=== PATIENT | male | born 1940 | race Caucasian/White ===

== ENCOUNTER → 2020-07-30 | Outpatient (CLI) | payer OTHER, MEDICARE | LOC: SJCVC 14:46 | PROVIDERS: ATTEND Internal Medicine Cardiovascular Disease | DX: R94.31 Abnormal electrocardiogram [ECG] [EKG] (principal); I44.7 Left bundle-branch block, unspecified; I50.22 Chronic systolic (congestive) heart failure; I25.5 Ischemic cardiomyopathy; I25.10 Atherosclerotic heart disease of native coronary artery without angina pectoris; E11.22 Type 2 diabetes mellitus with diabetic chronic kidney disease; N18.9 Chronic kidney disease, unspecified; Z95.5 Presence of coronary angioplasty implant and graft; Z95.810 Presence of automatic (implantable) cardiac defibrillator; Z79.899 Other long term (current) drug therapy; Z87.891 Personal history of nicotine dependence ==

== ENCOUNTER → 2020-08-07 | Outpatient (CLI) | payer OTHER, MEDICARE ==
[~2020-08-07] MED LIST: AMIODARONE HCL400 MG PO; CARVEDILOL25 MG PO; EFFIENT10 MG PO; ELIQUIS5 MG PO; ENTRESTO 49 MG1 EACH PO; FUROSEMIDE 40 M40 MG PO; GLIPIZIDE 10 MG10 MG PO; IMDUR 30 MG TAB30 M1 PO; PROTONIX40 M4 PO; RANOLAZINE ER500 MG PO; TYLENOL EXTRA500 MG PO; ZETIA10 MG PO
== END ==
LOC: LAB 09:08
PROVIDERS: ATTEND Internal Medicine Cardiovascular Disease
DX: Z01.812 Encounter for preprocedural laboratory examination (principal); Z20.828 Contact with and (suspected) exposure to other viral communicable diseases

== ENCOUNTER 2020-08-09 13:32 | Observation (INO) | payer OTHER, MEDICARE ==
[~2020-08-09] VITALS: Ht 182.9 cm; Wt 99.8 kg
--- NOTE | ~2020-08-09 | P ---
[facility] [place] [address] PROCEDURE REPORT Name: JEN CENTENO Room #: 201-P [facility] Carey#: [id number] Admission: 08/09/20 Attend Phys: Stephan Bryant MD Discharge: Date of : 40 Report #: [id number] THIS REPORT FOR: cc: CHRISTOPH - No family physician/PCP FAM - Family physician unknown Stephan Bryant MD ~ CC: CHRISTOPH physician/PCP CHRISTOPH unknown Stephan Bryant DATE OF SERVICE: 08/09/2020 PROCEDURE: Bi-V ICD upgrade. PREOPERATIVE DIAGNOSES: 1. Ischemic cardiomyopathy. 2. Chronic left ventricular systolic heart failure. 3. Left bundle-branch block. 4. [place] [employer] functional class III heart failure. HISTORY OF PRESENT ILLNESS: The patient is a 79-year-old male with a history of coronary artery disease, status post MO and an ischemic cardiomyopathy. He has a history of prior dual-chamber ICD implantation. He has chronic LV systolic heart failure, EF of less than 35% with a left bundle-branch block and [place] [employer] functional class III heart failure symptoms. He is here for upgrade from a dual chamber ICD to a biventricular ICD with addition of an LV lead. ANESTHESIA: The patient underwent MAC anesthesia with no anesthesia related complications. DESCRIPTION OF PROCEDURE: The patient underwent informed consent. We discussed the details of the procedure including the risks, which include but not limited to bleeding, infection, vascular damage, cardiac perforation, pneumothorax. He understood these risks and was willing to proceed. The patient was brought to the EP laboratory in fasting and unsedated state and prepped and draped in a sterile fashion. He underwent a venogram showing patency of the left axillary vein and received IV antibiotics prior to initiation of the procedure. Next, lidocaine was injected and incision was made over the prior pocket and the old device was removed. I expanded the pocket to make room for the new device and dissected the leads out. Next, I obtained access to left axillary vein x 1 using the extrathoracic approach with a sheath positioned using the modified Seldinger technique. Next, a Wholey wire and a coronary sinus guide sheath was advanced into the right atrium and we quickly obtained access to the coronary sinus. A venogram was performed, which showed [facility] [address] [place] [address] PROCEDURE REPORT Name: CENTENOJEN G Room #: 201-P [facility] Suze Patino#: [id number] Admission: 08/09/20 Attend Phys: Stephan Bryant MD Discharge: Date of : 40 Report #: [id number] that the patient had a small middle cardiac vein, a small posterior lateral branch and a large anterolateral branch. Next, a Biotronik quadripolar lead was advanced into the anterolateral branch with adequate pacing and sensing thresholds on the two distal poles and there was no phrenic nerve capture. As such, this sheath was split and remained in stable position and was sutured to the prepectoral fascia using Ethibond suture and then, the old device was disconnected from the chronic leads and the new device was connected to the new LV lead and chronic leads. Tug tests were performed and sensing and pacing thresholds were within normal limits. The device was placed in the pocket. Pocket was irrigated with vancomycin and the pocket was closed in 2 layers using 2-0 for the deep layer and 3-0 for the middle layer and surgical glue was placed at outer skin layer. The patient awoke neurologically and hemodynamically intact. No complications and no significant bleeding. The explanted device was a Biotronik Ilesto, serial #[id number]. The newly implanted device was an [place], serial #[id number]. The atrial and ventricular leads were both implanted in 10/2006. The atrial lead was a model #1642, serial #[id number] and the RV lead was a model #7041, serial #[id number]. The newly implanted LV lead was a Sentus, reference #[id number], serial #[id number]. The atrial lead demonstrated P-wave of 1.6 millivolts, pacing threshold 0.5 volts at 0.4 milliseconds, pacing impedance of 450 ohms. RV lead demonstrated R-wave of 10 millivolts, pacing threshold of 1.2 volts at 0.4 milliseconds, pacing impedance of 505 ohms and a shock impedance of 60 ohms. The LV lead demonstrated R-wave of 12 millivolts, pacing threshold 0.7 volts at 0.5 milliseconds in the LV1-LV2 pacing configuration with a pacing impedance of 999 ohms. The device was programmed to the DDD-CLS mode 60-130 with a 30 milliseconds offset on the LV lead, which resulted in a QRS complex of 95 milliseconds, improved from a QRS complex of 160 milliseconds. The VT monitor zone was set at 160-180 beats per minute. The VT2 zone was set at 180-200 beats per minute with ATP x 3 followed by max output shocks. The VF zone was set at greater than 200 beats per minute with ATP while charging followed by max output shocks. CONCLUSIONS: 1. Successful upgrade to a Bi-V ICD with addition of an LV lead. 2. Satisfactory atrial, right ventricular and left ventricular pacing and sensing thresholds. By: [id number] Stephan Bryant MD /nt
[2020-08-09 08:10] LABS: ABSOLUTE NEUTROPHILS 4.4 thou/uL (1.4-8.2); BASOPHILS 0.7 % (0.0-2.0); EOSINOPHILS 2.3 % (0.0-3.0); HEMATOCRIT 36.9 % (42.0-52.0); HEMOGLOBIN 12.4 gm/dL (14.0-18.0); LYMPHOCYTES 24.7 % (24.0-44.0); MCHC 33.5 g/dL (28.0-37.0); MCV 92.6 fL (80.0-100.0); PLATELET COUNT 234 thou/uL (150-400); POLYS 62.3 % (36.0-66.0); RBC 3.99 mil/uL (4.50-6.00); RDW 12.2 % (10.5-14.5); WBC 7.1 thou/uL (4.0-11.0)
[2020-08-09 08:12] VITALS: BP 160/74
[2020-08-09 08:22] LABS: APTT 25.7 Seconds (24.5-32.8); INR 1.1; PROTIME 11.1 Seconds (9.3-11.4)
[2020-08-09 08:23] LABS: CALCIUM 8.7 mg/dL (8.5-10.1); CREATININE 1.8 mg/dL (0.7-1.3); POTASSIUM 3.7 mmol/L (3.5-5.1)
[2020-08-09 08:28] LABS: ALBUMIN 3.2 g/dL (3.4-5.0); TOTAL BILIRUBIN 0.6 mg/dL (0.2-1.0); TOTAL PROTEIN 5.8 g/dL (6.4-8.2)
--- NOTE | 2020-08-09 17:36 | NUR ---
NEW ADMIT POST ICD PLACEMENT, ALERTX4 LIVES AT HOME WITH . DENEIS SOB, DENIES CHEST PAIN. NOTIFIED DR SAPP OF ELEVATED BP WITH ORDERS PLACE. ORDERS ACKNOWLEDGED. ADMISSION ASSESMENT COMPLETED. SR ON TELE. FOLLOWING POST ICD/PACEMAKER PLACEMENT. 24HOURS BEDREST PER PROTOCOL. UP TO COMMODE WITH ASSISTANCE. VOIDS PER URINAL. CALLS FOR ASSISTANCE. OBSERVATIONS PATIENT.PLANS TO DC IN MORNING
[2020-08-09 18:06] VITALS: BP 170/87
[2020-08-09 20:03] VITALS: BP 171/85
[2020-08-10 06:14] VITALS: BP 154/82
--- NOTE | 2020-08-10 06:20 | NUR ---
ASSUME CARE 1900. PT STABLE. SCARLET RUNS HIGH MOSTLY. LEFT SHOULDER DISCOMFORT BUT NO OTHER PAIN NOTED. DENIES ANY CHEST P[AIN. NO DISTRESS NOTED. ADEQUATE REST. LEFT ARM IMMOBILIZED. ASSESSMENT CHARTED. PROGRESSING WELL WITH POC. PLAN IS POSSIBLE DISCHARGE TODAY. WILL CONTINUE TO MONITOR AND FOLLOWE WIHT POC
[2020-08-10 07:30] VITALS: BP 156/79
[2020-08-10 12:12] VITALS: BP 156/79
--- NOTE | 2020-08-10 13:00 | NUR ---
ASSUMMED PT CARE AT APPROXIMATELY 0700. PT A&O X4. ASSESSMENT CHARTED. FALL PRECAUTIONS IN PLACE. PT DENIES HAVING CHEST PAIN. PT DENIES HAVING SOB. PT DENIES HAVING ACUTE PAIN. VITAL SIGNS STABLE. PT DISCHARGING HOME C SELF CARE. PT RECEIVED DISCHARGE EDUCATION. PT STATED UNDERSTANDING AND DENIED HAVING FURTHER QUESTIONS. IV DC. TELE DC. PT AMBUALTES STEADY/INDEPENDENT. PT RECEIVED MEDICAL TRANSPORT OFF UNIT. PT COMFORTABLE. PT DENIES HAVING FURTHER CONCERNS.
== END 2020-08-10 13:05 | disposition home or self-care (01) ==
LOC: CATH 13:32 → 2N 13:33
PROVIDERS: ADMIT Internal Medicine Cardiovascular Disease; ATTEND Internal Medicine Cardiovascular Disease
DX: I25.5 Ischemic cardiomyopathy (principal); I50.22 Chronic systolic (congestive) heart failure; I44.7 Left bundle-branch block, unspecified; I25.10 Atherosclerotic heart disease of native coronary artery without angina pectoris; I48.0 Paroxysmal atrial fibrillation; E11.22 Type 2 diabetes mellitus with diabetic chronic kidney disease; N18.9 Chronic kidney disease, unspecified; Z79.899 Other long term (current) drug therapy
CPT/HCPCS: 62110; 62900; 70005